=== PATIENT | male | born 1975 | race Caucasian/White ===

== ENCOUNTER 2021-03-18 08:48 | Emergency (ER) | payer SELFPAY ==
[~2021-03-18] VITALS: Ht 182.9 cm; Wt 106.6 kg
[2021-03-18] MEDS ORDERED: IV NORMAL SALINE 1,000ML 1,000 ML IV ONE (09:15)
[2021-03-18] MEDS ORDERED: PIPERACILLIN/TAZOBACTAM 3.375 GM in IV NORMAL SALINE 50ML 50 ML IV ONE (09:15)
[2021-03-18] MEDS ORDERED: PIPERACILLIN/TAZOBACTAM 3.375 GM VIAL IV ONE (09:28)
[2021-03-18] MEDS ORDERED: IV NORMAL SALINE 50ML 50 ML ONE (09:29)
--- NOTE | 2021-03-18 09:29 | PHYS DOC ---
Past History Past Medical History: Diabetes Past Surgical History: Other Additional Past Surgical Histo: LEFT FOOT Alcohol Use: None Adult General Chief Complaint Chief Complaint: TOE PROBLEM HPI HPI Patient is a 45-year-old male presenting for osteomyelitis of his left second toe. He reports he is a diabetic and noticed his left second toe had an ulcer approximately 2 months ago while he was in [place]. At that time he reports he had insurance and therefore was getting care by [facility] to manage his symptoms. He reports approximately a month ago he switched employers to [employer] and lost his insurance coverage and therefore has not had further medical follow-up by the [facility]. He reports approximately 2 weeks prior to presentation in [place] his left second toe was ulcerated and really painful and therefore he presented to ER for evaluation. At that time he reports he was told that they wanted to keep him in the hospital to amputate his toe due to concerns of osteomyelitis. He reports at that time he wanted to move to [place] and therefore did not want to stay in the hospital in [place]. He reports they discharged him on doxycycline 100 mg twice daily which he has been taking as scheduled. He reports no drainage from the site, loss of mobility, or paresthesias. No systemic signs of disease or fever reported. Does report increased left foot swelling compared to the right. in the room states that although he is a diabetic and has not been taking any of his home medications as he, "got tired of poking himself with needles". He was not clear what medications he needed to manage his diabetes however did report that he is on some oral medications in addition to insulin. Last known hemoglobin A1c greater than 3 months ago was 9.5%. Last p.o. intake was yesterday evening History was taken with the aid of his who interpreted his sign language on exam. Review of Systems Review of Systems Fourteen body systems of review of systems have been reviewed. See HPI for pertinent positives and negative responses, other kelly all other systems are negative, non-pertinent or non-contributory Allergies Allergies Allergies Coded Allergies Type Severity Reaction Last Updated Verified No Known Drug Allergies 03/18/21 No Physical Exam Physical Exam Constitutional: Well developed, well nourished, no acute distress, non-toxic appearance. HENT: Normocephalic, atraumatic, bilateral external ears normal, oropharynx moist, no oral exudates, nose normal. Eyes: PERRLA, EOMI, conjunctiva normal, no discharge. Neck: Normal range of motion, no tenderness, supple, no stridor. Cardiovascular: Heart rate regular, sinus rhythm, no murmurs rubs or gallops Lungs & Thorax: Bilateral breath sounds clear to auscultation Abdomen: Bowel sounds normal, soft, no tenderness, no masses, no pulsatile masses. Nonsurgical abdomen, no peritoneal signs Skin: Warm, dry, no erythema, no rash. Back: No tenderness, no CVA tenderness. Extremities: Left toe of second digit is erythematous and warm to the touch with a 1.4 cm ulcer with skin breakdown noted to distal tip/pad of toe without palpable or expressible exudate, no obvious or exposed bone, no crepitus or streaking noted. Left foot is swollen when compared to the right pulses are 2 out of 4 bilaterally both PT and DP. Sensation is intact bilaterally capillary refill in both lower extremity toes is less than 2 seconds. Loss of leg hair at level of bilateral malleoli and below Neurologic: Alert and oriented X 3, normal motor & sensory function, no focal deficits noted. Psychologic: Affect normal, judgement normal, mood normal. Current Patient Data Vital Signs Vital Signs Date Time Temp Pulse Resp B/P (MAP) Pulse Ox O2 Delivery O2 Flow Rate FiO2 03/18/21 09:03 97.6 71 18 118/79 (92) 100 Room Air Lab Results Laboratory Tests Test 03/18/21 09:40 03/18/21 09:53 White Blood Count 5.3 x10^3/uL Red Blood Count 5.88 x10^6/uL Hemoglobin 15.0 g/dL Hematocrit 44.6 % Mean Corpuscular Volume 76 fL Mean Corpuscular Hemoglobin 26 pg Mean Corpuscular Hemoglobin Concent 34 g/dL Red Cell Distribution Width 12.9 % Platelet Count 167 x10^3/uL Neutrophils (%) (Auto) 59 % Lymphocytes (%) (Auto) 31 % Monocytes (%) (Auto) 7 % Eosinophils (%) (Auto) 3 % Basophils (%) (Auto) 1 % Neutrophils # (Auto) 3.1 x10^3uL Lymphocytes # (Auto) 1.6 x10^3/uL Monocytes # (Auto) 0.4 x10^3/uL Eosinophils # (Auto) 0.1 x10^3/uL Basophils # (Auto) 0.0 x10^3/uL Erythrocyte Sedimentation Rate Pending Sodium Level 134 mmol/L Potassium Level 4.2 mmol/L Chloride Level 99 mmol/L Carbon Dioxide Level 26 mmol/L Anion Gap 9 Blood Urea Nitrogen 19 mg/dL Creatinine 0.8 mg/dL Estimated GFR (Cockcroft-Gault) 104.1 BUN/Creatinine Ratio 24 Glucose Level 302 mg/dL Lactic Acid Level 1.3 mmol/L Calcium Level 9.0 mg/dL Total Bilirubin 0.9 mg/dL Aspartate Amino Transf (AST/SGOT) 13 U/L Alanine Aminotransferase (ALT/SGPT) 28 U/L Alkaline Phosphatase 78 U/L C-Reactive Protein 3.3 mg/L Total Protein 6.8 g/dL Albumin 3.8 g/dL Albumin/Globulin Ratio 1.3 Glucose (Fingerstick) 288 mg/dL Current Medications Medications (Trade) Dose Ordered Sig/Izzy Route PRN Reason Start Time Stop Time Status Last Admin Dose Admin Sodium Chloride 1,000 ml @ 1,000 mls/hr 1X ONCE IV 03/18/21 09:15 03/18/21 10:14 DC 03/18/21 09:56 Piperacillin Sod/ Tazobactam Sod 3.375 gm/Sodium Chloride 50 ml @ 100 mls/hr 1X ONCE IV 03/18/21 09:15 03/18/21 09:44 DC 03/18/21 09:58 Piperacillin Sod/ Tazobactam Sod (Zosyn) 3.375 gm STK-MED ONCE IV 03/18/21 09:28 03/18/21 09:28 DC Sodium Chloride 50 ml @ As Directed STK-MED ONCE .ROUTE 03/18/21 09:29 03/18/21 09:29 DC Vancomycin HCl 2 gm/Sodium Chloride 500 ml @ 250 mls/hr 1X ONCE IV 03/18/21 10:15 03/18/21 12:14 03/18/21 10:40 EKG EKG EKG ordered and interpreted by myself at 0935 hrs. as sinus rhythm at 70 bpm, AZ interval 200 otherwise unremarkable intervals, no axis deviation, no ischemic findings, no STEMI Radiology/Procedures Radiology/Procedures EXAM: Left foot, 3 views. HISTORY: Osteomyelitis. COMPARISON: None. FINDINGS: 3 views of the left foot are obtained. There are destructive changes involving the second middle and distal phalanges with associated mild displacement of bone fragments and overlying soft tissue swelling. There is also a suspected ulcer along the tip of the second phalanx. There has been resection of the distal third metatarsal. There is smooth osseous excrescence along the fourth metatarsal which may be due to a healed fracture. There is degenerative spurring involving the midfoot. IMPRESSION: 1. Destructive changes involving the second middle and distal phalanges likely due to osteomyelitis. There is surrounding soft tissue swelling and a suspected ulcer along the tip of the second phalanx. 2. No additional acute osseous finding. 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 Electronically signed by: Clarita Gilbert MD (03/18/2021 9:51 AM) [id number] Heart Score C/O Chest Pain: No HEART Score for Chest Pain: HEART Score for Chest Pain Response (Comments) Value History Slighlty/Non-Suspicious 0 ECG Normal 0 Age >45 - < 65 1 Risk Factors 1 or 2 Risk Factors 1 Troponin < Normal Limit 0 Total 2 Risk Factors: Risk Factors: DM, Current or recent (<one month) smoker, HTN, HLP, family history of CAD, obesity. Risk Scores: Risk Factors: DM, Current or recent (<one month) smoker, HTN, HLP, family history of CAD, obesity. Course & Med Decision Making Course & Med Decision Making Hemodynamically stable patient with HPI and physical exam concerning for osteomyelitis ER work-up consistent with likely diagnosis of osteomyelitis of second digit Empiric IV antibiotics, vancomycin and Zosyn started. Covid swab pending likely surgical intervention I contacted hospitalist at [facility] who accepted patient under his care and agreed need for transfer to his facility. I will also contact orthopedic services at [facility] who agreed need for transfer and likely surgical intervention I updated patient and on proposed plan of care that included hospital tr [facility] for higher acuity of care, IV antibiotics and likely surgical intervention, they remained amenable. Patient to maintain n.p.o. status until hospital transfer. All questions and concerns addressed prior to ER transport to [facility] via EMS Critical Care Time This patient required critical care. Due to the fact that the patient required a significant amount of one on one physician - patient contact time, ordering and review of studies, arranging urgent treatment with development of a management plan, evaluation of patients response to treatment with frequent reassessments, and discussions with other providers this patient required 35 minutes of critical care time. Critical care time was indicated due to the inherent instability and/or potential for instability in this patient. The critical care time that is allocated to this patient is above and beyond any time spent on any other billable procedures performed on this patient. Dragon Disclaimer Dragon Disclaimer This electronic medical record was generated, in whole or in part, using a voice recognition dictation system. Departure Departure: Impression: Primary Impression: Osteomyelitis of second toe of left foot Additional Impression: Uncontrolled type 2 diabetes mellitus Disposition: 02 [facility] ([facility]) Admitting Physician: Kenna Gonzalez Condition: STABLE Referrals: PCP,NO (PCP) Problem Qualifiers CURTIS CARTWRIGHT DO Mar 18, 2021 09:29
--- NOTE | 2021-03-18 09:38 | EKG ---
[address] [address] Test Date: 2021-03-18 Test Time: 09:28:40 Pat Name: TAYLA BURTON Department: Room: Gender: M [employer]: BRENDAN : 1975 Requested By: CURTIS CARTWRIGHT Order Number: [id number] Reading MD: Measurements Intervals Bitely Rate: 70 P: 24 IL: 200 QRS: 52 QRSD: 94 T: 16 QT: 362 QTc: 393 Interpretive Statements SINUS RHYTHM OTHERWISE NORMAL ECG RI6.02 No previous ECG available for comparison
--- NOTE | 2021-03-18 09:53 | RAD ---
EXAM: Left foot, 3 views. HISTORY: Osteomyelitis. COMPARISON: None. FINDINGS: 3 views of the left foot are obtained. There are destructive changes involving the second m iddle and distal phalanges with associated mild displacement of bone fragments and overlying soft tis hugh swelling. There is also a suspected ulcer along the tip of the second phalanx. There has been res ection of the distal third metatarsal. There is smooth osseous excrescence along the fourth metatarsa l which may be due to a healed fracture. There is degenerative spurring involving the midfoot. IMPRESSION: 1. Destructive changes involving the second middle and distal phalanges likely due to osteomyelitis. There is surrounding soft tissue swelling and a suspected ulcer along the tip of the second phalanx. 2. No additional acute osseous finding. 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 Electronically signed by: Clarita Gilbert MD (03/18/2021 9:51 AM) [id number]
[2021-03-18 10:11] LABS: BASO % 1 % (0-3); EOS # 0.1 x10^3/uL (0.0-0.7); EOS % 3 % (0-3); HEMATOCRIT 44.6 % (39.0-53.0); LYMPH # 1.6 x10^3/uL (1.0-4.8); LYMPH % 31 % (24-48); MEAN CORPUSCULAR HEMOGLOBIN 26 pg (25-35); MEAN CORPUSCULAR HGB CONC 34 g/dL (31-37); MEAN CORPUSCULAR VOLUME 76 fL (79-100); MONO # 0.4 x10^3/uL (0.0-1.1); MONO % 7 % (0-9); NEUT # 3.1 x10^3uL (1.8-7.7); NEUT % 59 % (31-73); PLATELET COUNT 167 x10^3/uL (140-400); RED BLOOD COUNT 5.88 x10^6/uL (4.30-5.70); RED CELL DISTRIBUTION WIDTH 12.9 % (11.5-14.5); WHITE BLOOD COUNT 5.3 x10^3/uL (4.0-11.0)
[2021-03-18] MEDS ORDERED: VANCOMYCIN 2 GM in IV NORMAL SALINE 500ML 500 ML IV ONE (10:15)
[2021-03-18 10:17] LABS: CREATININE 0.8 mg/dL (0.7-1.3); GFR 104.1; POTASSIUM 4.2 mmol/L (3.5-5.1)
[2021-03-18 10:22] LABS: ALBUMIN 3.8 g/dL (3.4-5.0); ALBUMIN/GLOBULIN RATIO 1.3 (1.0-1.7); TOTAL BILIRUBIN 0.9 mg/dL (0.2-1.0); TOTAL PROTEIN 6.8 g/dL (6.4-8.2)
[2021-03-18 11:20] LABS: SEDIMENTATION RATE 3 (0-15)
[2021-03-18 16:58] VITALS: BP 121/85
== END 2021-03-18 17:09 | disposition short-term general hospital (02) ==
LOC: ER 08:48
DX: M86.8X7 Other osteomyelitis, ankle and foot (principal); E11.65 Type 2 diabetes mellitus with hyperglycemia; E11.621 Type 2 diabetes mellitus with foot ulcer; Z20.822 Contact with and (suspected) exposure to COVID-19
CPT/HCPCS: 36415; 73630; 80053; 82947; 83605; 85025; 85651; 86140; 87040; 87426; 93005; 96365; 96366; 96367; 99285; C9803; J2543; J3370; J7030; J7040; U0003; U0005

== ENCOUNTER 2022-03-30 08:54 | Emergency (ER) | payer OTHER ==
[~2022-03-30] VITALS: Ht 182.9 cm; Wt 106.6 kg
[2022-03-30 09:12] VITALS: BP 116/73
--- NOTE | 2022-03-30 09:38 | PHYS DOC ---
Past History Past Medical History: Diabetes Past Surgical History: Other Additional Past Surgical Histo: LEFT FOOT Alcohol Use: None Adult General Chief Complaint Chief Complaint: [facility] HPI Patient presents with right shoulder pain. Patient states it flares up occasionally but is significant over the last 24 hours. 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 Patient denies any specific injury. Review of Systems Review of Systems Constitutional: Denies fever or chills [] Eyes: Denies change in visual acuity, redness, or eye pain [] HENT: Denies nasal congestion or sore throat [] Respiratory: Denies cough or shortness of breath [] Cardiovascular: No additional information not addressed in HPI [] GI: Denies abdominal pain, nausea, vomiting, bloody stools or diarrhea [] : Denies dysuria or hematuria [] Musculoskeletal: Right shoulder pain Integument: Denies rash or skin lesions [] Neurologic: Denies headache, focal weakness or sensory changes [] Endocrine: Denies polyuria or polydipsia [] All other systems were reviewed and found to be within normal limits, except as documented in this note. Allergies Allergies Allergies Coded Allergies Type Severity Reaction Last Updated Verified No Known Drug Allergies 03/18/21 No Physical Exam Physical Exam Constitutional: Well developed, well nourished, no acute distress, non-toxic appearance. [] HENT: Normocephalic, atraumatic, bilateral external ears normal, oropharynx mo ist, no oral exudates, nose normal. [] Eyes: PERRLA, EOMI, conjunctiva normal, no discharge. [] Neck: Normal range of motion, no tenderness, supple, no stridor. [] Cardiovascular:Heart rate regular rhythm, no murmur [] Lungs & Thorax: Bilateral breath sounds clear to auscultation [] Abdomen: Bowel sounds normal, soft, no tenderness, no masses, no pulsatile masses. [] Skin: Warm, dry, no erythema, no rash. [] Back: No tenderness, no CVA tenderness. [] Extremities: Right shoulder tender palpation anteriorly and posteriorly, range of motion is normal although somewhat limited by pain. Neurologic: Alert and oriented X 3, normal motor function, normal sensory function, no focal deficits noted. [] Psychologic: Affect normal, judgement normal, mood normal. [] Current Patient Data Vital Signs Vital Signs Date Time Temp Pulse Resp B/P (MAP) Pulse Ox O2 Delivery O2 Flow Rate FiO2 03/30/22 09:12 97.9 70 18 116/73 (87) 99 Room Air EKG EKG [] Radiology/Procedures Radiology/Procedures [] Heart Score C/O Chest Pain: N/A Risk Factors: Risk Factors: DM, Current or recent (<one month) smoker, HTN, HLP, family history of CAD, obesity. Risk Scores: Risk Factors: DM, Current or recent (<one month) smoker, HTN, HLP, family history of CAD, obesity. Course & Med Decision Making Course & Med Decision Making Patient will get x-ray imaging initially. Likely flare of osteoarthritis versus mild rotator cuff tendinitis 1002-patient with x-ray imaging with no dislocation no acute fracture noted. Patient will be treated symptomatically with outpatient follow-up with orthopedic surgery and possible outpatient MRI if continued pain and issues. [] Dragon Disclaimer Dragon Disclaimer This electronic medical record was generated, in whole or in part, using a voice recognition dictation system. Departure Departure: Impression: Primary Impression: Right shoulder pain Disposition: HOME / SELF CARE / HOMELESS Condition: STABLE Referrals: DARIANA CROW MD (PCP) [facility] Patient Instructions: Shoulder Pain Additional Instructions: Take medication as prescribed. Return for worsening symptoms or other concerns. Contact your primary care physician as well as the orthopedic clinic for outpatient follow-up. DARLING GARCIA MD March 30, 2022 09:38
--- NOTE | 2022-03-30 09:59 | RAD ---
EXAM: Right shoulder, 3 views. HISTORY: Pain. COMPARISON: None. FINDINGS: 3 views of the right shoulder obtained. There is no acute fracture, dislocation or subluxat ion. IMPRESSION: No acute osseous finding. Electronically signed by: Clarita Gilbert MD (03/30/2022 9:56 AM) [id number]
[2022-03-30] MEDS ORDERED: HYDR-2155 PO ×2 (10:11→10:29)
[2022-03-30] MEDS ORDERED: HYDR-2759 PO (10:21)
== END 2022-03-30 10:40 | disposition home or self-care (01) ==
LOC: ER 08:54
DX: M25.511 Pain in right shoulder (principal); E11.9 Type 2 diabetes mellitus without complications
CPT/HCPCS: 73030; 99283